=== PATIENT | female | born 1995 | race Caucasian/White ===

== ENCOUNTER 2016-06-11 07:46 | Emergency (ER) | payer OTHER ==
[2016-06-11 07:52] VITALS: TEMP 98.9; BMI 25.7
--- NOTE | 2016-06-11 08:17 | PDOC ---
History of Present Illness - General History Source: Patient Exam Limitations: No Limitations - History of Present Illness Initial Comments: 06/11/16 08:32 The patient is a 20 year old female, with no significant past medical history, who presents to the emergency department with nausea and vomiting since 1am today. She reports that she has not been able to keep any liquids down and has vomited a total of 6 times. She notes that the vomit is nonbloody in nature. She denies eating outside foods, sick contacts or recent travel. The patient denies chest pain, shortness of breath, headache and dizziness. Denies fever, chills, diarrhea and constipation. Denies dysuria, frequency, urgency and hematuria. LMP: 05/22/2016 Allergies: None Past surgical history: None reported Social history: No alcohol, tobacco or drug use reported <Earnest Villa - Last Filed: 06/11/16 08:32> <Sarah Dent - Last Filed: 06/11/16 14:40> - General Chief Complaint: Nausea/Vomiting Stated Complaint: VOMITING Time Seen by Provider: 06/11/16 08:09 Past History <Earnest Villa - Last Filed: 06/11/16 08:32> - Psycho/Social/Smoking Cessation Hx Suicidal Ideation: No Smoking History: Never smoked Information on smoking cessation initiated: No Hx Alcohol Use: No Drug/Substance Use Hx: No <Sarah Dent - Last Filed: 06/11/16 14:40> - Past Medical History Allergies/Adverse Reactions: Allergies Allergy/AdvReac Type Severity Reaction Status Date / Time No Known Allergies Allergy Verified 06/11/16 08:12 Home Medications: Ambulatory Orders Ondansetron [Zofran -] 4 mg PO TID PRN #21 tablet 06/11/16 Review of Systems - Review of Systems Able to Perform ROS?: Yes Comments:: 06/11/16 08:33 GENERAL/CONSTITUTIONAL: No fever or chills. No weakness. HEAD, EYES, EARS, NOSE AND THROAT: No change in vision. No ear pain or discharge. No sore throat. CARDIOVASCULAR: No chest pain or shortness of breath RESPIRATORY: No cough, wheezing, or hemoptysis. GASTROINTESTINAL: +Nausea and vomiting. No diarrhea or constipation. GENITOURINARY: No dysuria, frequency, or change in urination. MUSCULOSKELETAL: No joint or muscle swelling or pain. No neck or back pain. SKIN: No rash NEUROLOGIC: No headache, vertigo, loss of consciousness, or change in strength/ sensation. ENDOCRINE: No increased thirst. No abnormal weight change HEMATOLOGIC/LYMPHATIC: No anemia, easy bleeding, or history of blood clots. ALLERGIC/IMMUNOLOGIC: No hives or skin allergy. <Earnest Villa - Last Filed: 06/11/16 08:32> *Physical Exam - Vital Signs Last Vital Signs Temp Pulse Resp BP Pulse Ox 98.9 F 130 H 18 113/65 100 06/11/16 07:49 06/11/16 07:49 06/11/16 07:49 06/11/16 07:49 06/11/16 07:49 - Physical Exam Comments: 06/11/16 08:33 GENERAL: Awake, alert, and fully oriented, in no acute distress HEAD: No signs of trauma, normocephalic, atraumatic EYES: PERRLA, EOMI, sclera anicteric, conjunctiva clear ENT: Auricles normal inspection, hearing grossly normal, nares patent, oropharynx clear without exudates. Moist mucosa NECK: Normal ROM, supple, no lymphadenopathy, JVD, or masses LUNGS: No distress, speaks full sentences, clear to auscultation bilaterally HEART: Regular rate and rhythm, normal S1 and S2, no murmurs, rubs or gallops, peripheral pulses normal and equal bilaterally. ABDOMEN: Soft, nontender, normoactive bowel sounds. No guarding, no rebound. No masses EXTREMITIES: Normal inspection, Normal range of motion, no edema. No clubbing or cyanosis. NEUROLOGICAL: Cranial nerves II through XII grossly intact. Normal speech, normal gait, no focal sensorimotor deficits SKIN: Warm, Dry, normal turgor, no rashes or lesions noted. <Earnest Villa - Last Filed: 06/11/16 08:32> - Vital Signs Last Vital Signs Temp Pulse Resp BP Pulse Ox 98.9 F 130 H 18 113/65 100 06/11/16 07:49 06/11/16 07:49 06/11/16 07:49 06/11/16 07:49 06/11/16 07:49 <Sarah Dent - Last Filed: 06/11/16 14:40> ED Treatment Course - LABORATORY CBC & Chemistry Diagram: 06/11/16 08:17 06/11/16 09:40 <Sarah Dent - Last Filed: 06/11/16 14:40> Medical Decision Making - Medical Decision Making 06/11/16 14:39 Pt improved with IV hydration and antiemetics. No signs of acute abdomen. Stable for DC home. <Sarah Dent - Last Filed: 06/11/16 14:40> *DC/Admit/Observation/Transfer - Attestations Scribe Attestion: 06/11/16 08:33 Documentation prepared by Earnest Villa, acting as medical lab assistant for Sarah Dent MD. <Earnest Villa - Last Filed: 06/11/16 08:32> - Discharge Dispostion Admit: No <Sarah Dent - Last Filed: 06/11/16 14:40> Diagnosis at time of Disposition: Nausea and vomiting Qualifiers: Vomiting type: unspecified Vomiting Intractability: non-intractable Qualified Code(s): R11.2 - Nausea with vomiting, unspecified - Discharge Dispostion Disposition: HOME Condition at time of disposition: Stable - Prescriptions Prescriptions: Ondansetron [Zofran -] 4 mg PO TID PRN #21 tablet PRN Reason: Nausea And/Or Vomiting - Referrals Referrals: Terri Barnes MD [Primary Care Provider] - - Patient Instructions Printed Discharge Instructions: DI for Vomiting -- Adult, Nausea and Vomiting- Adult
[2016-06-11] MEDS ORDERED: ONDANSETRON 4 MG/2 ML VIAL IVPUSH ONE (08:18)
[2016-06-11] MEDS ORDERED: SODIUM CHLORIDE 1,000 ML IV STA (08:18)
[2016-06-11] MEDS ORDERED: ONDANSETRON 4 MG/2 ML VIAL ONE (08:43)
[2016-06-11 09:14] LABS: BASOPHIL 0.2 % (0-2.0); EOSINOPHIL 0.2 % (0-4.5); MCH 29.9 pg (25.7-33.7); MCHC 33.6 g/dl (32.0-36.0); MEAN CELL VOLUME 88.8 fl (80-96); MEAN PLT VOLUME 9.3 fl (7.5-11.1); NEUTROPHILS 91.8 % (42.8-82.8); PLATELET COUNT 232 K/MM3 (134-434); RDW 13.1 % (11.6-15.6); WHITE BLOOD COUNT 12.3 K/mm3 (4.0-10.0)
[2016-06-11 09:21] LABS: URINE APPEARANCE SLCLOUDY; URINE BILIRUBIN NEGATIVE (NEGATIVE); URINE BLOOD NEGATIVE (NEGATIVE); URINE COLOR YELLOW; URINE GLUCOSE (UA) NEGATIVE (NEGATIVE); URINE KETONE TRACE (NEGATIVE); URINE LEUK ESTERASE NEGATIVE (NEGATIVE); URINE NITRITE NEGATIVE (NEGATIVE); URINE UROBILINOGEN NEGATIVE E.U./dl (0.2-1.0)
[2016-06-11 09:35] LABS: URINE PROTEIN 1+ (NEGATIVE)
[2016-06-11 09:38] LABS: URINE BACTERIA RARE /hpf (NONE SEEN); URINE MUCUS RARE; URINE RBC 25 /hpf (0-3); URINE WBC 2 /hpf (3-5)
[2016-06-11] MEDS ORDERED: KETOROLAC TROMETHAMINE 30 MG/1 ML VIAL IVPUSH ONE (09:50)
[2016-06-11] MEDS ORDERED: KETOROLAC TROMETHAMINE 30 MG/1 ML VIAL ONE (09:52)
[2016-06-11 10:02] LABS: ALBUMIN 4.1 g/dl (3.4-5.0); ANION GAP 6 (8-16); CALCIUM 8.9 mg/dL (8.5-10.1); CO2 27 mmol/L (21-32); CREATININE 0.6 mg/dL (0.55-1.02); GLUCOSE,RANDOM 101 mg/dL (74-106); SGOT/AST 14 U/L (15-37); SGPT/ALT 19 U/L (12-78)
[2016-06-11 10:04] LABS: ALK PHOS 53 U/L (45-117); TOT PROT 7.7 g/dl (6.4-8.2)
[2016-06-11 11:57] VITALS: BP 109/67; PULSE 100
--- NOTE | 2016-06-12 09:43 | EKG ---
Test Reason : Blood Pressure : / mmHG Vent. Rate : 115 BPM Atrial Rate : 115 BPM P-R Int : 134 ms QRS Dur : 076 ms QT Int : 324 ms P-R-T Axes : 058 023 009 degrees QTc Int : 448 ms SINUS TACHYCARDIA OTHERWISE NORMAL ECG NO PREVIOUS ECGS AVAILABLE Confirmed by MARLENE ACUNA MD ([id number]) on 06/12/2016 9:43:46 AM Referred By: Overread By: MARLENE ACUNA MD
== END 2016-06-11 12:12 | disposition home or self-care (01) ==
LOC: JER 07:46
PROC: 3E0333Z Introduction of Anti-inflammatory into Peripheral Vein, Percutaneous Approach (ICD-10-PCS; principal; 2016-06-11)
PROC: 3E033GC Introduction of Other Therapeutic Substance into Peripheral Vein, Percutaneous Approach (ICD-10-PCS; 2016-06-11)
DX: R11.2 Nausea with vomiting, unspecified (principal)
CPT/HCPCS: 36415; 80053; 81003; 81015; 83690; 84703; 85025; 93005; 93010; 99283-25

== ENCOUNTER 2020-11-18 01:58 | Emergency (ER) | payer OTHER ==
[2020-11-18 02:22] VITALS: BP 129/87; PULSE 93; TEMP 98.6; BMI 26.5
[2020-11-18] MEDS ORDERED: KETOROLAC TROMETHAMINE 15 MG/ML VIAL IM ONE (03:50)
[2020-11-18] MEDS ORDERED: DEXAMETHASONE 4 MG TABLET (FP) PO ONE (03:55)
[2020-11-18] MEDS ORDERED: DEXAMETHASONE LIQUID 0.5 MG/5 ML PO ONE (04:03)
[2020-11-18] MEDS ORDERED: DEXAMETHASONE SOD PHOSPHATE 10 MG/1 ML VIAL ONE (04:07)
[2020-11-18] MEDS ORDERED: KETOROLAC TROMETHAMINE 15 MG/ML VIAL ONE (04:07)
== END 2020-11-18 04:58 | disposition home or self-care (01) ==
LOC: JER 01:58
PROC: 3E0233Z Introduction of Anti-inflammatory into Muscle, Percutaneous Approach (ICD-10-PCS; principal; 2020-11-18)
DX: J02.9 Acute pharyngitis, unspecified (principal)
CPT/HCPCS: 84703; 87804; 87880; 99284-25; C9803; U0003; U0005